=== PATIENT | female | born 1970 | race Caucasian/White ===

== ENCOUNTER 2016-09-01 03:05 | Emergency (ER) | payer OTHER ==
[~2016-09-01] VITALS: Ht 172.7 cm; Wt 60.0 kg
[~2016-09-01 03:05] MED LIST: TRET0.0242 EACH EYE; Z.0.NO CURRENT MEDS
--- NOTE | 2016-09-01 03:44 | PD ---
HPI Chief Complaint: Exposure to Blood/Body Fluids Time Seen by Provider: 03:38 Travel History International Travel<30 days: No Contact w/Intl Traveler<30days: No History of Present Illness HPI Patient is here for evaluation of needle stick to left index finger that occurred shortly prior to being evaluated. Patient states she had placed a chest tube and was gettin ready to surture it in place in the source patient when she had a straight needle go through her sterile gloves that was covered in the source patient's blood causing a puncture wound. Patient reports that she thoroughly washed her finger and placed a bandage prior to being seen. Reports tetanus shot is up to date. [facility] Past Medical History Medical History: Denies Significant Hx Past Surgical History Other Surgery: Yes (BREAST AUGMENTATION) Social History Alcohol Use: No Tobacco Use: No Substance Use: No Allergies-Medications (Allergen,Severity, Reaction): Coded Allergies: No Known Allergies (Verified , 09/01/16) Reported Meds & Prescriptions Reported Meds & Active Scripts Active Review of Systems Except as stated in HPI: all other systems reviewed are Neg Physical Exam Narrative GENERAL: Well-developed, well nourished, in no acute distress, and non-ill appearing. SKIN: Warm and dry. Small needle puncture wound noted lateral aspect of left index finger. There is no sign of retained foreign body. Neurovascularly intact and full range of motion is noted. HEAD: Atraumatic. Normocephalic. EYES: Pupils equal and round. EOMI. No scleral icterus. No injection or drainage. ENT: No nasal bleeding or discharge. Mucous membranes pink and moist. NECK: Trachea midline. Supple. No nuclear rigidity. RESPIRATORY: No accessory muscle use. No respiratory distress. MUSCULOSKELETAL: No obvious deformities. No clubbing. No cyanosis. No edema. Full range of motion. NEUROLOGICAL: Awake and alert. No obvious cranial nerve deficits. Motor grossly within normal limits. Normal speech. PSYCHIATRIC: Appropriate mood and affect; insight and judgment normal. Data Data Last Documented VS Vital Signs Date Time Temp Pulse Resp B/P Pulse Ox O2 Delivery O2 Flow Rate FiO2 09/01/16 03:50 16 09/01/16 03:47 98.5 68 118/78 98 MDM Medical Decision Making Medical Screen Exam Complete: Yes Emergency Medical Condition: Yes Differential Diagnosis Needle stick, puncture wound, laceration, abrasion, other Narrative Course Patient in no obvious distress upon re-evaluation. Post exposure prophylaxis was discussed with patient to wait until source patient HIV test comes back. Any questions/concerns in reference to patient diagnosis/condition discussed and clarified prior to patient's discharge. Reinforced sheer importance of close follow up with employee med. Instructed patient to return to ED immediately, if symptoms return/worsen. Pt showed understanding of above instructions. Further instructions and recommendations were detailed in discharge paperwork. Pt ambulated without difficulty out of ED at discharge. Diagnosis Primary Impression: Needle stick injury of finger of left hand Qualified Code: S61.239A - Needle stick injury of finger of left hand, initial encounter Referrals: Employ Med Patient Instructions: General Instructions, Needle Stick Injuries (ED) Additional Instructions: Follow-up with employee med 24-48 hours. Keep wound dry and clean as possible using soap and water. Return to the emergency department if symptoms get worse. Disposition: 01 DISCHARGE HOME Condition: Stable [place] Sep 01, 2016 03:44
[2016-09-01 03:47] VITALS: BP 118/78; PULSE 68; RESP 16; TEMP 98.5; O2SAT 98
== END 2016-09-01 04:51 | disposition home or self-care (01) ==
LOC: NEPB 03:05
DX: S61.231A Puncture wound without foreign body of left index finger without damage to nail, initial encounter (principal); W46.1XXA Contact with contaminated hypodermic needle, initial encounter; Y93.F9 Activity, other caregiving
CPT/HCPCS: 99282